=== PATIENT | female | born 1965 | race Caucasian/White ===

== ENCOUNTER 2017-11-20 10:19 | Inpatient (IN) | payer MEDICARE ==
[2017-11-20] MEDS: ALBUTEROL 0.5% (NEB) 2.5 MG/0.5 ML AMP INH (11:35)
[2017-11-20] MEDS: IPRATROPIUM (NEB) 0.5 MG/2.5 ML AMP INH (11:35)
[2017-11-20] MEDS: METHYLPREDNISOLONE 125 MG INJ IV (11:38)
[2017-11-20 11:55] LABS: WHITE BLOOD COUNT 5.1 10^3/ul (4.8-10.8)
[2017-11-20 11:55] LABS: ADD MAN DIFF? YES; HEMATOCRIT 44.1 % (37.0-47.0); HEMOGLOBIN 13.4 g/dl (12.0-16.0); MEAN CORPUSCULAR HGB CONC 30.4 g/dl (32.0-37.0); MEAN CORPUSCULAR VOLUME 82.4 fl (82.0-101.0); MEAN PLATELET VOLUME 9.4 fl (7.4-10.4); PLATELET COUNT 238 10^3/UL (140-415); POSITIVE DIFF @See below; RED BLOOD COUNT 5.35 10^6/ul (4.20-5.40); RED CELL DISTRIBUTION WIDTH 17.9 % (11.5-14.5)
[2017-11-20 12:08] LABS: ALANINE AMINOTRANSFERASE 35 IU/L (13-69); ALBUMIN 4.1 g/dl (3.3-4.9); ALKALINE PHOSPHATASE 145 IU/L (42-121); ANION GAP 11 (8-16); ASPARTATE AMINO TRANSFERASE 26 IU/L (15-46); BILIRUBIN,INDIRECT 0.4 mg/dl (0-1.1); BILIRUBIN,TOTAL 0.4 mg/dl (0.2-1.3); BLOOD UREA NITROGEN 14 mg/dl (7-20); CALCIUM 9.6 mg/dl (8.4-10.2); CARBON DIOXIDE 28 mmol/L (21-31); CHLORIDE 108 mmol/L (97-110); CREATININE 0.61 mg/dl (0.44-1.00); GLUCOSE 99 mg/dl (70-220); POTASSIUM 4.4 mmol/L (3.5-5.1); SODIUM 143 mmol/L (135-144); TOTAL PROTEIN 7.5 g/dl (6.1-8.1)
[2017-11-20 12:21] LABS: INR 0.89; PARTIAL THROMBOPLASTIN TIME 24.1 Sec (25.0-35.0); PROTIME 12.1 Sec (11.9-14.9); PT RATIO 0.9
[2017-11-20 12:22] LABS: TROPONIN-I < 0.012 ng/ml (0.000-0.120)
[2017-11-20 12:43] LABS: ANISOCYTOSIS 1+ (0-0); BAND NEUTROPHILS #M 1.2 10^3/ul (0.0-0.6); BAND NEUTROPHILS % (M) 25 % (0-4); EOSINOPHILS % (M) 4 % (0-7); HYPOCHROMASIA 1+ (0-0); LYMPHOCYTES #M 0.8 10^3/ul (0.8-2.9); LYMPHOCYTES % (M) 16 % (15-51); MICROCYTOSIS 1+ (0-0); MONOCYTE #M 0.2 10^3/ul (0.3-0.9); MONOCYTES % (M) 5 % (0-11); PLATELET ESTIMATE NORMAL; POIKILOCYTOSIS 1+ (0-0); POLYCHROMASIA 3+ (0-0); REACTIVE LYMPHOCYTES #M 0.1 10^3/ul (0.0-0.0); REACTIVE LYMPHOCYTES% (M) 2 % (0-0); SEG NEUT #M 2.5 10^3/ul (1.6-7.5); SEGMENTED NEUTROPHILS (M) % 48 % (39-77); SMUDGE%M 12 % (0-0)
[2017-11-20] MEDS: ASPIRIN 325 MG TAB PO (13:19)
[2017-11-20] MEDS ORDERED: ONDANSETRON 4 MG INJ IV (14:00)
[2017-11-20] MEDS ORDERED: ACETAMINOPHEN 325 MG TAB PO (14:00)
[2017-11-20] MEDS ORDERED: NACL 0.9% 3 ML SYG IV (15:30)
[2017-11-20 16:14] LABS: TROPONIN-I < 0.012 ng/ml (0.000-0.120)
[2017-11-20] MEDS: IOHEXOL 100 ML (16:19)
[2017-11-20] MEDS: SOD CHLORIDE 0.9% 100 ML (16:19)
[2017-11-20 16:38] LABS: B-TYPE NATRIURETIC PEPTIDE 123 PG/ML (0-125)
[2017-11-20] MEDS: HYDROCODONE/APAP (5/325) TAB PO (19:43)
[2017-11-21 07:04] LABS: ADD MAN DIFF? NO
[2017-11-21 07:05] LABS: WHITE BLOOD COUNT 4.2 10^3/ul (4.8-10.8)
[2017-11-21 07:05] LABS: BASOPHILS % 0.5 % (0.0-2.0); EOSINOPHILS % 0.5 % (0.0-7.0); HEMATOCRIT 38.9 % (37.0-47.0); HEMOGLOBIN 12.4 g/dl (12.0-16.0); LYMPHOCYTES % 24.5 % (15.0-51.0); MEAN CORPUSCULAR HEMOGLOBIN 25.6 pg (29.0-33.0); MEAN CORPUSCULAR HGB CONC 31.9 g/dl (32.0-37.0); MEAN CORPUSCULAR VOLUME 80.2 fl (82.0-101.0); MEAN PLATELET VOLUME 9.7 fl (7.4-10.4); MONOCYTE # 0.3 10^3/ul (0.3-0.9); MONOCYTES % 7.1 % (0.0-11.0); NEUTROPHIL # 2.8 10^3/ul (1.6-7.5); NEUTROPHILS % 66.9 % (39.0-77.0); PLATELET COUNT 211 10^3/UL (140-415); RED BLOOD COUNT 4.85 10^6/ul (4.20-5.40); RED CELL DISTRIBUTION WIDTH 17.6 % (11.5-14.5)
[2017-11-21 07:06] LABS: POSITIVE DIFF @See below
[2017-11-21 07:23] LABS: HEMOGLOBIN A1C 5.4 % (0-5.9)
[2017-11-21 07:32] LABS: ALANINE AMINOTRANSFERASE 25 IU/L (13-69); ALBUMIN 3.7 g/dl (3.3-4.9); ALBUMIN/GLOBULIN RATIO 1.08; ALKALINE PHOSPHATASE 130 IU/L (42-121); ANION GAP 15 (8-16); ASPARTATE AMINO TRANSFERASE 18 IU/L (15-46); BILIRUBIN,INDIRECT 0.3 mg/dl (0-1.1); BILIRUBIN,TOTAL 0.3 mg/dl (0.2-1.3); BLOOD UREA NITROGEN 17 mg/dl (7-20); CALCIUM 9.7 mg/dl (8.4-10.2); CARBON DIOXIDE 25 mmol/L (21-31); CHLORIDE 109 mmol/L (97-110); CREATININE 0.61 mg/dl (0.44-1.00); GLUCOSE 95 mg/dl (70-220); SODIUM 145 mmol/L (135-144); TOTAL PROTEIN 7.1 g/dl (6.1-8.1)
[2017-11-21] MEDS: ALBUTEROL/IPRATROPIUM (NEB) 3 ML AMP HHN ×3 (08:34→20:05)
[2017-11-21] MEDS: AMLODIPINE 10 MG TAB PO (08:44)
[2017-11-21] MEDS: BENAZEPRIL 40 MG TAB PO (08:44)
[2017-11-21] MEDS: ENOXAPARIN 40 MG/0.4 ML SYG SC (08:45)
[2017-11-21] MEDS: HYDROCODONE/APAP (5/325) TAB PO ×2 (10:29→19:05)
[2017-11-21] MEDS: LEVOFLOXACIN 500MG/D5W (PMX) 100 ML IVPB (14:14)
[2017-11-21] MEDS: FUROSEMIDE 40 MG INJ IV (16:59)
[2017-11-21] MEDS: METHYLPREDNISOLONE 40 MG INJ IV ×2 (16:59→22:58)
[2017-11-21] MEDS: FAMOTIDINE 20 MG TAB PO (19:05)
[2017-11-21] MEDS: BACLOFEN 10 MG TAB PO (22:58)
[2017-11-22] MEDS: HYDROCODONE/APAP (5/325) TAB PO ×4 (01:25→19:08)
[2017-11-22] MEDS: METHYLPREDNISOLONE 40 MG INJ IV ×2 (06:00→22:24)
[2017-11-22 08:08] LABS: ADD MAN DIFF? NO
[2017-11-22 08:11] LABS: BASOPHILS % 0.4 % (0.0-2.0); HEMATOCRIT 42.1 % (37.0-47.0); HEMOGLOBIN 13.3 g/dl (12.0-16.0); LYMPHOCYTES # 0.7 10^3/ul (0.8-2.9); LYMPHOCYTES % 12.8 % (15.0-51.0); MEAN CORPUSCULAR HEMOGLOBIN 25.2 pg (29.0-33.0); MEAN CORPUSCULAR HGB CONC 31.6 g/dl (32.0-37.0); MEAN CORPUSCULAR VOLUME 79.7 fl (82.0-101.0); MEAN PLATELET VOLUME 10.5 fl (7.4-10.4); MONOCYTE # 0.1 10^3/ul (0.3-0.9); MONOCYTES % 1.8 % (0.0-11.0); NEUTROPHIL # 4.8 10^3/ul (1.6-7.5); NEUTROPHILS % 84.3 % (39.0-77.0); PLATELET COUNT 267 10^3/UL (140-415); RED BLOOD COUNT 5.28 10^6/ul (4.20-5.40); RED CELL DISTRIBUTION WIDTH 17.6 % (11.5-14.5)
[2017-11-22 08:11] LABS: WHITE BLOOD COUNT 5.7 10^3/ul (4.8-10.8)
[2017-11-22] MEDS: AMLODIPINE 10 MG TAB PO (08:32)
[2017-11-22] MEDS: BENAZEPRIL 40 MG TAB PO (08:32)
[2017-11-22 08:33] LABS: ANION GAP 15 (8-16); BLOOD UREA NITROGEN 24 mg/dl (7-20); CALCIUM 10.1 mg/dl (8.4-10.2); CARBON DIOXIDE 25 mmol/L (21-31); CHLORIDE 106 mmol/L (97-110); CREATININE 0.64 mg/dl (0.44-1.00); GLUCOSE 118 mg/dl (70-220); POTASSIUM 4.2 mmol/L (3.5-5.1); SODIUM 142 mmol/L (135-144)
[2017-11-22] MEDS: ENOXAPARIN 40 MG/0.4 ML SYG SC (08:35)
[2017-11-22] MEDS: ALBUTEROL/IPRATROPIUM (NEB) 3 ML AMP HHN ×3 (09:00→20:30)
[2017-11-22] MEDS: LEVOFLOXACIN 500MG/D5W (PMX) 100 ML IVPB (14:32)
[2017-11-22] MEDS: PANTOPRAZOLE (EC) 40 MG TAB PO (19:07)
[2017-11-22] MEDS: BACLOFEN 10 MG TAB PO (22:24)
[2017-11-23] MEDS: HYDROCODONE/APAP (5/325) TAB PO ×3 (02:58→17:50)
[2017-11-23] MEDS: METHYLPREDNISOLONE 40 MG INJ IV ×3 (05:59→21:18)
[2017-11-23] MEDS: PANTOPRAZOLE (EC) 40 MG TAB PO (05:59)
[2017-11-23] MEDS: ENOXAPARIN 40 MG/0.4 ML SYG SC (08:28)
[2017-11-23] MEDS: AMLODIPINE 10 MG TAB PO (08:29)
[2017-11-23] MEDS: BENAZEPRIL 40 MG TAB PO (08:30)
[2017-11-23] MEDS: ALBUTEROL/IPRATROPIUM (NEB) 3 ML AMP HHN ×3 (09:08→20:07)
[2017-11-23] MEDS: LEVOFLOXACIN 500 MG TAB PO (14:36)
[2017-11-23] MEDS: BACLOFEN 10 MG TAB PO (21:18)
[2017-11-24] MEDS: HYDROCODONE/APAP (5/325) TAB PO ×4 (00:52→21:37)
[2017-11-24] MEDS: PANTOPRAZOLE (EC) 40 MG TAB PO (06:45)
[2017-11-24] MEDS: LEVOFLOXACIN 500 MG TAB PO (06:46)
[2017-11-24] MEDS: METHYLPREDNISOLONE 40 MG INJ IV ×3 (06:46→21:38)
[2017-11-24] MEDS: ALBUTEROL/IPRATROPIUM (NEB) 3 ML AMP HHN ×3 (07:16→19:57)
[2017-11-24] MEDS: AMLODIPINE 10 MG TAB PO (09:03)
[2017-11-24] MEDS: BENAZEPRIL 40 MG TAB PO (09:03)
[2017-11-24] MEDS: ENOXAPARIN 40 MG/0.4 ML SYG SC (09:04)
[2017-11-24] MEDS: FUROSEMIDE 40 MG INJ IV (11:32)
[2017-11-24] MEDS ORDERED: BISACODYL 10 MG SUPP PR (13:30)
[2017-11-24] MEDS ORDERED: BISACODYL (EC) 5 MG TAB PO (13:30)
[2017-11-24] MEDS: SENNA/DOCUSATE NA (8.6MG/50MG) TAB PO ×2 (14:27→21:00)
[2017-11-24] MEDS: BACLOFEN 10 MG TAB PO (21:37)
[2017-11-25] MEDS: HYDROCODONE/APAP (5/325) TAB PO ×3 (02:45→18:24)
[2017-11-25] MEDS: PANTOPRAZOLE (EC) 40 MG TAB PO (05:59)
[2017-11-25] MEDS: FUROSEMIDE 40 MG INJ IV (05:59)
[2017-11-25] MEDS: METHYLPREDNISOLONE 40 MG INJ IV ×3 (05:59→21:49)
[2017-11-25] MEDS: LEVOFLOXACIN 500 MG TAB PO (05:59)
[2017-11-25 06:25] LABS: ADD MAN DIFF? NO
[2017-11-25 06:29] LABS: BASOPHILS % 0.2 % (0.0-2.0); HEMATOCRIT 41.2 % (37.0-47.0); HEMOGLOBIN 12.9 g/dl (12.0-16.0); LYMPHOCYTES # 0.9 10^3/ul (0.8-2.9); LYMPHOCYTES % 14.8 % (15.0-51.0); MEAN CORPUSCULAR HEMOGLOBIN 25.2 pg (29.0-33.0); MEAN CORPUSCULAR HGB CONC 31.3 g/dl (32.0-37.0); MEAN CORPUSCULAR VOLUME 80.6 fl (82.0-101.0); MEAN PLATELET VOLUME 10.3 fl (7.4-10.4); MONOCYTE # 0.3 10^3/ul (0.3-0.9); MONOCYTES % 5.5 % (0.0-11.0); NEUTROPHIL # 4.5 10^3/ul (1.6-7.5); NEUTROPHILS % 78.1 % (39.0-77.0); PLATELET COUNT 278 10^3/UL (140-415); RED BLOOD COUNT 5.11 10^6/ul (4.20-5.40); RED CELL DISTRIBUTION WIDTH 17.5 % (11.5-14.5)
[2017-11-25 06:29] LABS: WHITE BLOOD COUNT 5.8 10^3/ul (4.8-10.8)
[2017-11-25 07:15] LABS: ANION GAP 13 (8-16); BLOOD UREA NITROGEN 26 mg/dl (7-20); CALCIUM 9.5 mg/dl (8.4-10.2); CARBON DIOXIDE 28 mmol/L (21-31); CHLORIDE 105 mmol/L (97-110); CREATININE 0.64 mg/dl (0.44-1.00); GLUCOSE 118 mg/dl (70-220); MAGNESIUM 2.4 mg/dl (1.7-2.5); PHOSPHORUS 3.8 mg/dl (2.5-4.9); POTASSIUM 4.5 mmol/L (3.5-5.1); SODIUM 141 mmol/L (135-144)
[2017-11-25 07:16] LABS: FREE T4 (FREE THYROXINE) 1.25 ng/dl (0.64-1.79)
[2017-11-25 07:30] LABS: TRIIODOTHYRONINE 0.86 ng/ml (0.97-1.69)
[2017-11-25] MEDS: ALBUTEROL/IPRATROPIUM (NEB) 3 ML AMP HHN ×2 (08:38→15:28)
[2017-11-25] MEDS: AMLODIPINE 10 MG TAB PO (08:57)
[2017-11-25] MEDS: BENAZEPRIL 40 MG TAB PO (08:58)
[2017-11-25] MEDS: SENNA/DOCUSATE NA (8.6MG/50MG) TAB PO ×2 (08:58→21:00)
[2017-11-25] MEDS: ENOXAPARIN 40 MG/0.4 ML SYG SC (08:59)
[2017-11-25] MEDS: ZOLPIDEM 5 MG TAB PO (21:49)
[2017-11-25] MEDS: LACTOBACILLUS RHAMNOSUS CAP PO (21:49)
[2017-11-26] MEDS: ALBUTEROL/IPRATROPIUM (NEB) 3 ML AMP HHN ×3 (00:05→15:21)
[2017-11-26] MEDS: LEVOFLOXACIN 500 MG TAB PO (06:27)
[2017-11-26] MEDS: METHYLPREDNISOLONE 40 MG INJ IV (06:27)
[2017-11-26] MEDS: PANTOPRAZOLE (EC) 40 MG TAB PO (06:27)
[2017-11-26 07:45] LABS: ADD MAN DIFF? NO
[2017-11-26 07:46] LABS: BASOPHILS % 0.3 % (0.0-2.0); HEMOGLOBIN 13.1 g/dl (12.0-16.0); LYMPHOCYTES % 14.9 % (15.0-51.0); MEAN CORPUSCULAR HEMOGLOBIN 24.9 pg (29.0-33.0); MEAN CORPUSCULAR HGB CONC 30.5 g/dl (32.0-37.0); MEAN CORPUSCULAR VOLUME 81.6 fl (82.0-101.0); MEAN PLATELET VOLUME 9.7 fl (7.4-10.4); MONOCYTE # 0.6 10^3/ul (0.3-0.9); MONOCYTES % 8.8 % (0.0-11.0); NEUTROPHIL # 5.1 10^3/ul (1.6-7.5); NEUTROPHILS % 75.3 % (39.0-77.0); PLATELET COUNT 265 10^3/UL (140-415); RED BLOOD COUNT 5.27 10^6/ul (4.20-5.40); RED CELL DISTRIBUTION WIDTH 17.6 % (11.5-14.5)
[2017-11-26 07:46] LABS: WHITE BLOOD COUNT 6.7 10^3/ul (4.8-10.8)
[2017-11-26 08:43] LABS: ANION GAP 15 (8-16); BLOOD UREA NITROGEN 26 mg/dl (7-20); CALCIUM 9.6 mg/dl (8.4-10.2); CARBON DIOXIDE 27 mmol/L (21-31); CHLORIDE 104 mmol/L (97-110); CREATININE 0.68 mg/dl (0.44-1.00); GLUCOSE 107 mg/dl (70-220); MAGNESIUM 2.3 mg/dl (1.7-2.5); PHOSPHORUS 3.6 mg/dl (2.5-4.9); POTASSIUM 4.1 mmol/L (3.5-5.1); SODIUM 142 mmol/L (135-144)
[2017-11-26] MEDS: SENNA/DOCUSATE NA (8.6MG/50MG) TAB PO (09:16)
[2017-11-26] MEDS: AMLODIPINE 10 MG TAB PO (09:16)
[2017-11-26] MEDS: BENAZEPRIL 40 MG TAB PO (09:16)
[2017-11-26] MEDS: FUROSEMIDE 40 MG TAB PO (09:16)
[2017-11-26] MEDS: LACTOBACILLUS RHAMNOSUS CAP PO (09:16)
[2017-11-26] MEDS: ENOXAPARIN 40 MG/0.4 ML SYG SC (09:18)
[2017-11-26] MEDS: HYDROCODONE/APAP (5/325) TAB PO ×2 (10:29→16:56)
[2017-11-26] MEDS: predniSONE 10 MG TAB PO (12:51)
[2017-11-26 16:21] LABS: FREE T4 (FREE THYROXINE) 1.29 ng/dl (0.64-1.79)
[2017-11-26 16:35] LABS: THYROID STIMULATING HORMONE 0.034 MIU/L (0.465-4.680)
== END 2017-11-26 17:33 | disposition home or self-care (01) | DRG 190 ==
LOC: FTE 10:19 → MS4 13:32
DX: J44.0 Chronic obstructive pulmonary disease with (acute) lower respiratory infection (principal); J18.9 Pneumonia, unspecified organism; J96.01 Acute respiratory failure with hypoxia; C90.01 Multiple myeloma in remission; Z94.84 Stem cells transplant status; I42.9 Cardiomyopathy, unspecified; J20.9 Acute bronchitis, unspecified; I27.20 Pulmonary hypertension, unspecified; I11.0 Hypertensive heart disease with heart failure; I50.9 Heart failure, unspecified; F17.200 Nicotine dependence, unspecified, uncomplicated; E05.90 Thyrotoxicosis, unspecified without thyrotoxic crisis or storm
CPT/HCPCS: 36415; 71045; 71275; 76536; 80048; 80053; 83036; 83735; 83880; 84100; 84439; 84443; 84480; 84484; 85025; 85378; 85610; 85730; 93005; 93306; 94640; 94644; 94664; 96374; 99285-25; G0378